=== PATIENT | male | born 2000 | race Caucasian/White ===

== ENCOUNTER 2019-04-09 01:22 | Emergency (ER) | payer OTHER ==
[~2019-04-09] VITALS: Ht 188 cm; Wt 104.3 kg
--- NOTE | ~2019-04-09 | EKG ---
[place] [address] ELECTROCARDIOGRAM REPORT Name: ISHA GUILLEN Room: [facility]#: [id number] Admission: 04/09/19 Attend Phys: Discharge: Date of : [birth year] Date of Service: 04/09/19 0133 Report #: [id number] THIS REPORT FOR: cc: FAM - No family physician/PCP FAM - No family physician/PCP Funmilayo Mello MD ~ THIS REPORT FOR: //name// [facility] ED Test Date: 2019-04-09 Test Time: 01:33:07 Pat Name: ISHA GUILLEN Department: Room: Gender: M Economics Consultant: [place] : 2000 Requested By: Ora Johnson Order Number: [id number] MD: Measurements Intervals [place] Rate: 115 P: 79 NH: 142 QRS: 5 QRSD: 95 T: 26 QT: 341 QTc: 472 Interpretive Statements Sinus tachycardia Probable left atrial enlargement Low voltage, precordial leads RSR' in V1 or V2, right VCD or RVH Borderline prolonged QT interval No previous ECG available for comparison [email or web address] By: 0133 0133 Epiphany Epiphany, /DEANDRA
[2019-04-09 02:34] LABS: HEMATOCRIT 49.6 % (42.0-52.0); HEMOGLOBIN 16.6 gm/dL (14.0-18.0); MCH 28.5 pg (26.0-34.0); MCHC 33.5 g/dL (28.0-37.0); MCV 85.3 fL (80.0-100.0); MPV 8.9 fl. (7.2-11.1); RBC 5.81 mil/uL (4.50-6.00); RDW-CV 13.2 % (10.5-14.5); WBC 12.1 thou/uL (4.0-11.0)
[2019-04-09 02:42] LABS: URINE BILIRUBIN NEGATIVE (Negative); URINE BLOOD NEGATIVE (Negative); URINE CLARITY CLEAR; URINE COLOR YELLOW; URINE GLUCOSE-RANDOM NEGATIVE (Negative); URINE KETONES 2+ (Negative); URINE LEUKOCYTES NEGATIVE (Negative); URINE NITRITE NEGATIVE (Negative); URINE PROTEIN NEGATIVE (Negative); URINE UROBILINOGEN 0.2 E.U./dl (0.2-1.0)
[2019-04-09 02:44] LABS: CALCIUM 9.1 mg/dL (8.5-10.1); POTASSIUM 3.1 mmol/L (3.5-5.1)
[2019-04-09 02:48] LABS: AMP/METHAMP Negative (Negative); BARBITURATES Negative (Negative); BENZODIAZEPINES Negative (Negative); COCAINE Negative (Negative); METHADONE Negative (Negative); OPIATES Negative (Negative); PCP Negative (Negative); THC Negative (Negative)
[2019-04-09 02:49] LABS: ALBUMIN 4.3 g/dL (3.4-5.0); TOTAL BILIRUBIN 0.4 mg/dL (<0.1-1.0); TOTAL PROTEIN 8.1 g/dL (6.4-8.2)
[2019-04-09 03:08] LABS: ACETAMINOPHEN 86 ug/mL (10-30); ALCOHOL < 10 mg/dL (<10); SALICYLATE < 2.8 mg/dL (2.8-20.0)
[2019-04-10 15:13] VITALS: BP 149/75
== END 2019-04-10 15:13 ==
LOC: M.ERS 01:22
PROVIDERS: Personal Emergency Response Attendant
DX: T39.1X2A Poisoning by 4-Aminophenol derivatives, intentional self-harm, initial encounter (principal); Z88.7 Allergy status to serum and vaccine; Y92.89 Other specified places as the place of occurrence of the external cause